=== PATIENT | male | born 1955 | race Caucasian/White ===

== ENCOUNTER 2023-06-15 10:34 | Day surgery (SDC) | payer OTHER ==
[~2023-06-15] VITALS: Ht 170.2 cm; Wt 76.2 kg
[2023-06-15] MEDS ORDERED: LIDOCAINE 2% 100 MG/5 ML UJET TP ONE ×2 (13:13→15:40)
[2023-06-15] MEDS ORDERED: fentaNYL citrate 0.05 MG/ML VIAL ONE (13:13)
[2023-06-15] MEDS ORDERED: fentaNYL citrate 0.05 MG/ML VIAL IVP ONE (15:40)
== END 2023-06-15 15:00 | disposition home or self-care (01) ==
LOC: MDS 10:34 → MMU 10:36 → MDS 15:00
PROVIDERS: ATTEND Internal Medicine Gastroenterology
DX: Z12.11 Encounter for screening for malignant neoplasm of colon (principal); E11.9 Type 2 diabetes mellitus without complications; E03.9 Hypothyroidism, unspecified; I10 Essential (primary) hypertension; Z86.73 Personal history of transient ischemic attack (TIA), and cerebral infarction without residual deficits; Z79.82 Long term (current) use of aspirin; Z79.84 Long term (current) use of oral hypoglycemic drugs; Z79.899 Other long term (current) drug therapy
CPT/HCPCS: 82948; G0121; J3010